=== PATIENT | female | born 1980 | race African-American/Black ===

== ENCOUNTER 2017-09-24 15:38 | Emergency (ER) | payer OTHER, MEDICAID ==
[~2017-09-24] VITALS: Ht 167.6 cm; Wt 81.7 kg
[2017-09-24 17:23] VITALS: BP 114/72
== END 2017-09-24 17:24 | disposition home or self-care (01) ==
LOC: M.ERS 15:38
DX: R51 Headache (principal)

== ENCOUNTER 2017-09-28 08:18 | Emergency (ER) | payer OTHER, MEDICAID ==
[~2017-09-28] VITALS: Ht 167.6 cm; Wt 81.7 kg
[2017-09-28 08:33] LABS: URINE BILIRUBIN NEGATIVE (Negative); URINE BLOOD 3+ (Negative); URINE CLARITY CLOUDY; URINE COLOR RED; URINE GLUCOSE-RANDOM NEGATIVE (Negative); URINE KETONES NEGATIVE (Negative); URINE LEUKOCYTES-REFLEX TRACE (Negative); URINE NITRITE-REFLEX NEGATIVE (Negative); URINE PROTEIN 3+ (Negative); URINE UROBILINOGEN 0.2 E.U./dl (0.2-1.0)
[2017-09-28 08:48] LABS: BACTERIA-REFLEX None Seen /HPF (None Seen); CASTS None Seen /LPF (None Seen); CRYSTALS None Seen /LPF (None Seen); SQUAMOUS 0-3 Few /LPF (0-3); URINE RBC >20 Many /HPF (0-2)
[2017-09-28 08:49] LABS: URINE WBC-REFLEX 0-5 Rare /HPF (0-5)
[2017-09-28 09:38] LABS: CALCIUM 8.8 mg/dL (8.5-10.1); CREATININE 0.9 mg/dL (0.6-1.3)
[2017-09-28] MEDS ORDERED: BACTRIM DS TAB1 EACH PO (11:46)
[2017-09-28] MEDS ORDERED: NORCO 5-325 TA1 EACH PO (11:46)
[2017-09-28 11:55] VITALS: BP 119/74
== END 2017-09-28 11:55 | disposition home or self-care (01) ==
LOC: M.ERS 08:18
PROVIDERS: Emergency Medicine Emergency Medical Services
DX: N23 Unspecified renal colic (principal); G43.909 Migraine, unspecified, not intractable, without status migrainosus

== ENCOUNTER 2017-10-24 22:56 | Emergency (ER) | payer OTHER, MEDICAID ==
[~2017-10-24] VITALS: Ht 167.6 cm; Wt 81.7 kg
[~2017-10-24 22:56] MED LIST: BACTRIM DS TAB1 EACH PO; NORCO 5-325 TA1 EACH PO
[2017-10-25 01:16] VITALS: BP 126/72
== END 2017-10-25 01:17 | disposition home or self-care (01) ==
LOC: M.ERS 22:56
DX: G43.909 Migraine, unspecified, not intractable, without status migrainosus (principal)

== ENCOUNTER 2019-06-14 18:24 | Emergency (ER) | payer OTHER, MEDICAID ==
[~2019-06-14] VITALS: Ht 162.6 cm; Wt 86.2 kg
[2019-06-14 18:54] LABS: URINE BILIRUBIN NEGATIVE (Negative); URINE BLOOD NEGATIVE (Negative); URINE CLARITY CLEAR; URINE COLOR YELLOW; URINE GLUCOSE-RANDOM NEGATIVE (Negative); URINE KETONES NEGATIVE (Negative); URINE LEUKOCYTES-REFLEX NEGATIVE (Negative); URINE NITRITE-REFLEX NEGATIVE (Negative); URINE PROTEIN NEGATIVE (Negative); URINE UROBILINOGEN 0.2 E.U./dl (0.2-1.0)
[2019-06-14 19:11] LABS: INFLUENZA A ANTIGEN Negative (Negative); INFLUENZA B ANTIGEN Negative (Negative)
[2019-06-14] MEDS ORDERED: TESSALON PERLE100 M1 PO (19:25)
[2019-06-14] MEDS ORDERED: MEDROLDOSEPACK PO (19:25)
[2019-06-14] MEDS ORDERED: PROAIR HFA8.5 GM INH (19:25)
[2019-06-14 19:39] VITALS: BP 121/70
== END 2019-06-14 19:39 | disposition home or self-care (01) ==
LOC: M.ERS 18:24
PROVIDERS: Physician Assistant
DX: J06.9 Acute upper respiratory infection, unspecified (principal); B34.9 Viral infection, unspecified; G43.909 Migraine, unspecified, not intractable, without status migrainosus; Z98.890 Other specified postprocedural states